=== PATIENT | female | born 1930 | race Two or more races ===

== ENCOUNTER 2018-10-21 20:50 | Inpatient (IN) | payer MEDICARE, BC ==
[2018-10-21] MEDS ORDERED: Sodium Chloride 0.9% 1,000 ML IV ONE (21:15)
--- NOTE | 2018-10-21 21:23 | ED Physician Chart ---
ED Chief Complaint/HPI - Patient Information Date Seen:: 10/21/18 Time Seen:: 21:20 Chief Complaint:: abdominal pain, vomiting and diarrhea History of Present Illness:: Patient developed epigastric pain, vomiting and diarrhea 2-3 hours ago. She has vomited about 12 times and had 6-7 times watery diarrhea. Allergies:: Allergies Allergy/AdvReac Type Severity Reaction Status Date / Time No Known Allergies Allergy Verified 10/21/18 21:01 Vitals:: Vital Signs - 8 hr 10/21/18 20:50 Temp 96.7 F HR 130 RR 20 BP 157/83 O2 Sat % 100 Historian:: Patient, Family Member Review:: Nurse's Note Reviewed ED Review of Systems - Review of Systems General/Constitutional: No fever, No chills Skin: No skin lesions Head: No headache Eyes: No loss of vision ENT: No earache Neck: No neck pain, No swelling Cardio Vascular: No chest pain, No palpitations Pulmonary: No SOB, No cough, No sputum GI: Nausea, Vomiting, Diarrhea, Pain G/U: No dysuria Musculoskeletal: No bone or joint pain Endocrine: No polyuria, No polydipsia Psychiatric: No prior psych history Hematopoietic: No bruising Allergic/Immuno: No urticaria Neurological: No syncope, No focal symptoms ED Past Medical History - Past Medical History Past Medical History: HTN Family History: None Social History: Non Smoker, No Alcohol Surgical History: None Psychiatricy History: None Medication: Reviewed Family Medical History - Family Member Mother History Unknown: Yes ED Physical Exam - Physical Examination General/Constitutional: Awake, Well-developed, well-nourished, Alert, No distress Head: Atraumatic Eyes: Lids, conjuctiva normal, PERRL Other Eyes comments:: arcus senilis Skin: Nl inspection, No rash, No skin lesions, No ecchymosis ENMT: External ears, nose nl, TM canals nl, Nasal exam nl Other ENMT comments:: Edentulous Neck: No nuchal rigidity Respiratory: Nl effort/Exclusion, Clear to Auscultation Cardio Vascular: RRR, No murmur, gallop, rubs GI: No organomegaly, No hernia, Normal BS's Other GI comments:: Epigastric tenderness; milder right upper quadrant tenderness Extremities: Normal digits & nails Neuro/Psych: No focal deficits ED Labs/Radiology/EKG Results - Lab Results Results: Laboratory Results WBC 12.2 Th/cmm (4.8-10.8) H 10/21/18 21:30 RBC 4.29 Mil/cmm (3.80-5.20) 10/21/18 21:30 Hgb 12.2 gm/dL (12-16) 10/21/18 21:30 Hct 36.7 % (41.0-60) L 10/21/18 21:30 MCV 85.5 fl (81-100) 10/21/18 21:30 MCH 28.5 pg (27.0-31.0) 10/21/18 21:30 MCHC Differential 33.3 pg (28.0-36.0) 10/21/18 21:30 RDW 13.6 % (11.5-20.0) 10/21/18 21:30 Plt Count 255 Th/cmm (150-400) 10/21/18 21:30 MPV 8.1 fl 10/21/18 21:30 Neutrophils % 72.0 % (40.0-80.0) 10/21/18 21:30 Lymphocytes % 19.4 % (20.0-50.0) L 10/21/18 21:30 Monocytes % 3.8 % (2.0-10.0) 10/21/18 21:30 Eosinophils % 0.8 % (0.0-5.0) 10/21/18 21:30 Basophils % 4.0 % (0.0-2.0) H 10/21/18 21:30 Sodium 137 mEq/L (136-145) 10/21/18 21:30 Potassium 4.4 mEq/L (3.5-5.1) 10/21/18 21:30 Chloride 109 mEq/L (98-107) H 10/21/18 21:30 Carbon Dioxide 18.7 mEq/L (21.0-31.0) L 10/21/18 21:30 Anion Gap 13.7 (7.0-16.0) 10/21/18 21:30 BUN 33 mg/dL (7-25) H 10/21/18 21:30 Creatinine 1.5 mg/dL (0.6-1.2) H 10/21/18 21:30 Est GFR ( Amer) TNP 10/21/18 21:30 Est GFR (Non-Af Amer) TNP 10/21/18 21:30 BUN/Creatinine Ratio 22.0 10/21/18 21:30 Glucose 210 mg/dL (70-105) H 10/21/18 21:30 Calcium 10.0 mg/dL (8.6-10.3) 10/21/18 21:30 Magnesium 1.7 mg/dL (1.9-2.7) L 10/21/18 21:30 Lipase 62 U/L (11-82) 10/21/18 21:30 ED Assessment - Assessment General Assessment: Patient appears to have viral gastroenteritis with vomiting and diarrhea but because of her age she should be admitted to the hospital. Patient has a leukocytosis 12.2 K and a magnesium of 1.7 . She will receive 2 g of magnesium IV piggyback. ED Septic Shock - . Is Septic Shock (SBP<90, OR Lactate>4 mmol\L) present?: No - <6hrs of presentation: Vital Signs: Vital Signs - 8 hr 10/21/18 20:50 Temp 96.7 F HR 130 RR 20 BP 157/83 O2 Sat % 100 ED Reassessment (Disposition) - Reassessment Reassessment Condition:: Unchanged - Diagnosis Diagnosis:: Viral gastroenteritis; hypomagnesemia; leukocytosis - Aftercare/Follow up Instructions Aftercare/Follow-Up Instructions:: Refer to Discharge Instructions - Patient Disposition Discharge/Transfer:: Home Spoke to:: Vivian Carrasco Admitting Medical Physician:: Vivian Carrasco Condition at Disposition:: Stable, Unchanged
[2018-10-21 21:33] LABS: % EOSINOPHILS 0.8 % (0.0-5.0); % LYMPHOCYTES 19.4 % (20.0-50.0); % MONOCYTES 3.8 % (2.0-10.0); BASOPHILE ABSOLUTE 0.5 Th/cumm (0-0.2); EOSINOPHILE ABSOLUTE 0.1 Th/cmm (0.1-0.4); HEMATOCRIT 36.7 % (41.0-60); HEMOGLOBIN 12.2 gm/dL (12-16); LYMPHOCYTE ABSOLUTE 2.4 Th/cmm (1.5-3.0); MEAN CELL VOLUME 85.5 fl (81-100); MEAN CORPUSCULAR HEMOGLOBIN 28.5 pg (27.0-31.0); MEAN CORPUSCULAR HGB CONC 33.3 pg (28.0-36.0); MONOCYTE ABSOLUTE 0.5 Th/cmm (0.3-1.0); NEUTROPHILE ABSOLUTE 8.7 Th/cmm (1.8-8.0); PLATELET COUNT 255 Th/cmm (150-400); RED BLOOD COUNT 4.29 Mil/cmm (3.80-5.20); RED CELL DISTRIBUTION WIDTH 13.6 % (11.5-20.0); WHITE BLOOD COUNT 12.2 Th/cmm (4.8-10.8)
[2018-10-21 21:50] LABS: ANION GAP 13.7 (7.0-16.0); BUN - UREA NITROGEN 33 mg/dL (7-25); CARBON DIOXIDE 18.7 mEq/L (21.0-31.0); CHLORIDE 109 mEq/L (98-107); CREATININE - SERUM 1.5 mg/dL (0.6-1.2); GLUCOSE 210 mg/dL (70-105); LIPASE 62 U/L (11-82); MAGNESIUM 1.7 mg/dL (1.9-2.7); POTASSIUM SERUM 4.4 mEq/L (3.5-5.1); SODIUM SERUM 137 mEq/L (136-145)
[2018-10-22 00:56] VITALS: BP 122/69
[2018-10-22] MEDS: D5-0.45NS w/20 mEq KCL 1,000 ML IV SCH ×2 (01:45→14:13)
[2018-10-22 05:38] LABS: ALB/GLOB RATIO 1.4 (1.0-1.8); ALBUMIN 3.4 gm/dL (3.7-5.3); ALKALINE PHOSPHATASE 32 U/L (34-104); ANION GAP 11.4 (7.0-16.0); BILIRUBIN,TOTAL 0.4 mg/dL (0.3-1.0); BUN - UREA NITROGEN 33 mg/dL (7-25); CALCIUM SERUM 8.6 mg/dL (8.6-10.3); CARBON DIOXIDE 20.6 mEq/L (21.0-31.0); CHLORIDE 108 mEq/L (98-107); CREATININE - SERUM 1.3 mg/dL (0.6-1.2); GLUCOSE 212 mg/dL (70-105); SGPT/ALT 6 U/L (7-52); SODIUM SERUM 135 mEq/L (136-145); TOTAL PROTEIN,SERUM 5.8 gm/dL (6.0-8.3)
[2018-10-22 07:09] LABS: SGOT 8 U/L (13-39)
[2018-10-22] MEDS ORDERED: GLUCAGON HCl 1 MG KIT IM PRN (15:56)
[2018-10-22] MEDS ORDERED: Dextrose 50% 50 mL Abboject IVP PRN (15:56)
--- NOTE | 2018-10-22 16:17 | History & Physical ---
ADMIT DATE: 10/21/2018 CHIEF COMPLAINT: Nausea, vomiting, diarrhea, abdominal pain for 1 day duration. HISTORY OF PRESENT ILLNESS: The patient is an 87-year-old female with long history of hypertension, hyperlipidemia, diabetes mellitus, presented to the Emergency Room with intractable nausea, vomiting, diarrhea, evaluated by the ER physician. Initial workup sent for acute gastroenteritis, admitted to the hospital, started on IV fluid, full liquid diet, IV Protonix. No fever, no chills, no dysuria or hematuria. PAST MEDICAL HISTORY: Hypertension, hyperlipidemia, diabetes mellitus, degenerative joint disease. PAST SURGICAL HISTORY: Cholecystectomy, tonsillectomy, appendectomy. ALLERGIES: None. MEDICATIONS: Follow admission reconciliation. SOCIAL HISTORY: No smoker, no alcohol, no drugs. FAMILY HISTORY: Noncontributory. REVIEW OF SYSTEMS: RENAL SYSTEM: No history of chronic renal disorder. CARDIOVASCULAR SYSTEM: No coronary artery disease. ENDOCRINE SYSTEM: She has diabetes mellitus. GASTROINTESTINAL SYSTEM: She has intractable nausea and vomiting, diarrhea. NEUROLOGICAL SYSTEM: No seizure disorder. MUSCULOSKELETAL SYSTEM: No muscular dystrophy. HEMATOLOGIC SYSTEM: No bleeding tendencies. RESPIRATORY SYSTEM: No asthma. GENITOURINARY SYSTEM: No dysuria or hematuria. PHYSICAL EXAMINATION: GENERAL: She is awake, alert, oriented, not in pain or distress. VITAL SIGNS: Temperature 98.0, heart rate 93, blood pressure 104/50. HEENT: Normocephalic. Pupils reactive to light and accommodation. Sclerae clear. NECK: Supple. Negative for lymphadenopathy, JVD, or bruit. CHEST: Entry of air bilaterally normal. No rhonchi or wheezing. HEART: S1, S2 normal. No gallop rhythm. ABDOMEN: Soft, bowel sounds positive. EXTREMITIES: No edema. NEUROLOGIC: She is awake, alert, oriented. No focal motor or sensory deficits. Cranial nerves II through XII is intact. LABORATORY DATA: White blood cell 12.2, hemoglobin 12.2, hematocrit 36.7, platelet 255. Sodium 137, potassium 4.4, BUN 33, creatinine 0.4. ASSESSMENT: 1. Acute gastroenteritis. 2. Diabetes mellitus. 3. Hypertension. 4. Dehydration. 5. Acute kidney injury. PLAN: The patient admitted to the hospital under Dr. Carrasco's service, started on IV fluid, IV antibiotic. CBC, CMP for tomorrow. Advance the diet as tolerated. Case discussed with the family at bedside. [facility]# [id number]
[2018-10-22] MEDS: INSULIN LISPRO SLIDING SCALE 100 UNITS/ML UNIT SUBQ SCH ×2 (16:44→20:41)
[2018-10-22] MEDS: Ferrous Sulfate 325 MG TAB PO SCH (20:45)
[2018-10-23] MEDS: D5-0.45NS w/20 mEq KCL 1,000 ML IV SCH ×2 (06:05→16:01)
[2018-10-23 06:06] LABS: A1C 7.7 % (4.8-5.6)
[2018-10-23 06:18] LABS: % BASOPHILS 0.2 % (0.0-2.0); % EOSINOPHILS 1.9 % (0.0-5.0); % LYMPHOCYTES 35.4 % (20.0-50.0); % MONOCYTES 6.7 % (2.0-10.0); % NEUTROPHILS 55.8 % (40.0-80.0); EOSINOPHILE ABSOLUTE 0.1 Th/cmm (0.1-0.4); HEMATOCRIT 29.4 % (41.0-60); HEMOGLOBIN 9.8 gm/dL (12-16); LYMPHOCYTE ABSOLUTE 2.1 Th/cmm (1.5-3.0); MEAN CELL VOLUME 86.8 fl (81-100); MEAN CORPUSCULAR HEMOGLOBIN 28.9 pg (27.0-31.0); MEAN CORPUSCULAR HGB CONC 33.3 pg (28.0-36.0); MONOCYTE ABSOLUTE 0.4 Th/cmm (0.3-1.0); NEUTROPHILE ABSOLUTE 3.4 Th/cmm (1.8-8.0); PLATELET COUNT 170 Th/cmm (150-400); RED BLOOD COUNT 3.39 Mil/cmm (3.80-5.20); RED CELL DISTRIBUTION WIDTH 13.6 % (11.5-20.0)
[2018-10-23] MEDS: INSULIN LISPRO SLIDING SCALE 100 UNITS/ML UNIT SUBQ SCH ×3 (06:54→16:03)
[2018-10-23 07:07] LABS: ALB/GLOB RATIO 1.3 (1.0-1.8); ALBUMIN 3.2 gm/dL (3.7-5.3); ALKALINE PHOSPHATASE 27 U/L (34-104); ANION GAP 10.8 (7.0-16.0); BILIRUBIN,TOTAL 0.3 mg/dL (0.3-1.0); BUN - UREA NITROGEN 18 mg/dL (7-25); CALCIUM SERUM 8.6 mg/dL (8.6-10.3); CARBON DIOXIDE 20.7 mEq/L (21.0-31.0); CHLORIDE 111 mEq/L (98-107); CREATININE - SERUM 1.2 mg/dL (0.6-1.2); GLUCOSE 153 mg/dL (70-105); POTASSIUM SERUM 4.5 mEq/L (3.5-5.1); SGOT 9 U/L (13-39); SGPT/ALT 5 U/L (7-52); SODIUM SERUM 138 mEq/L (136-145); TOTAL PROTEIN,SERUM 5.6 gm/dL (6.0-8.3)
[2018-10-23] MEDS: Ferrous Sulfate 325 MG TAB PO SCH ×2 (08:57→13:07)
[2018-10-23] MEDS ORDERED: Fenofibrate, Micronized 134 mg Cap PO SCH (09:00)
--- NOTE | 2018-10-23 20:28 | General Progress Note ---
Subjective - Review of Systems Service Date: 10/23/18 Subjective: awake and alert denies nausea or diarrhea, denies abdo pain feels better and eager to go home daughter at bedside Objective - Results Result Diagrams: 10/23/18 05:40 10/23/18 05:00 Recent Labs: Laboratory Last Values WBC 6.0 Th/cmm (4.8-10.8) 10/23/18 05:40 RBC 3.39 Mil/cmm (3.80-5.20) L 10/23/18 05:40 Hgb 9.8 gm/dL (12-16) L 10/23/18 05:40 Hct 29.4 % (41.0-60) L 10/23/18 05:40 MCV 86.8 fl (81-100) 10/23/18 05:40 MCH 28.9 pg (27.0-31.0) 10/23/18 05:40 MCHC Differential 33.3 pg (28.0-36.0) 10/23/18 05:40 RDW 13.6 % (11.5-20.0) 10/23/18 05:40 Plt Count 170 Th/cmm (150-400) 10/23/18 05:40 MPV 8.0 fl 10/23/18 05:40 Neutrophils % 55.8 % (40.0-80.0) 10/23/18 05:40 Lymphocytes % 35.4 % (20.0-50.0) 10/23/18 05:40 Monocytes % 6.7 % (2.0-10.0) 10/23/18 05:40 Eosinophils % 1.9 % (0.0-5.0) 10/23/18 05:40 Basophils % 0.2 % (0.0-2.0) 10/23/18 05:40 Sodium 138 mEq/L (136-145) 10/23/18 05:00 Potassium 4.5 mEq/L (3.5-5.1) 10/23/18 05:00 Chloride 111 mEq/L (98-107) H 10/23/18 05:00 Carbon Dioxide 20.7 mEq/L (21.0-31.0) L 10/23/18 05:00 Anion Gap 10.8 (7.0-16.0) 10/23/18 05:00 BUN 18 mg/dL (7-25) 10/23/18 05:00 Creatinine 1.2 mg/dL (0.6-1.2) 10/23/18 05:00 Est GFR ( Amer) TNP 10/23/18 05:00 Est GFR (Non-Af Amer) TNP 10/23/18 05:00 BUN/Creatinine Ratio 15.0 10/23/18 05:00 Glucose 153 mg/dL (70-105) H 10/23/18 05:00 POC Glucose 189 MG/DL (70 - 105) H 10/23/18 15:58 Calcium 8.6 mg/dL (8.6-10.3) 10/23/18 05:00 Magnesium 1.7 mg/dL (1.9-2.7) L 10/21/18 21:30 Total Bilirubin 0.3 mg/dL (0.3-1.0) 10/23/18 05:00 AST 9 U/L (13-39) L 10/23/18 05:00 ALT 5 U/L (7-52) L 10/23/18 05:00 Alkaline Phosphatase 27 U/L (34-104) L 10/23/18 05:00 Total Protein 5.6 gm/dL (6.0-8.3) L 10/23/18 05:00 Albumin 3.2 gm/dL (3.7-5.3) L 10/23/18 05:00 Globulin 2.4 gm/dL 10/23/18 05:00 Albumin/Globulin Ratio 1.3 (1.0-1.8) 10/23/18 05:00 Lipase 62 U/L (11-82) 10/21/18 21:30 - Physical Exam Vitals and I&O: Vital Signs Temp 98.0 F 10/23/18 16:00 Pulse 93 10/23/18 16:00 Resp 18 10/23/18 16:00 BP 145/58 10/23/18 16:00 Pulse Ox 100 10/23/18 16:00 Intake & Output 10/23/18 10/23/18 10/24/18 06:59 18:59 06:59 Intake Total 1200 200 Output Total 0 Balance 1200 200 Weight (lbs) 69.127 kg 69.127 kg Intake: Intake, IV Amount 1000 D5-0.45NS w/20 mEq KCL 1, 1000 000 ml @ 75 mls/hr IV . [id number] [facility] Rx#:[id number] Oral 200 200 Output: Stool 0 Other: # Voids 3 3 # Bowel Movements 0 1 Weight Source Bedscale Bedscale Active Medications: Current Medications Dextrose (D50w) 50 ml IVP PRN PRN PRN Reason: Blood Glucose less than 70 Stop: 12/21/18 15:55 Dextrose (Glutose 40%) 18.75 gm PO PRN PRN PRN Reason: Blood Glucose less than 70 Stop: 12/21/18 15:55 Fenofibrate (Tricor) 134 mg PO DAILY [facility] Stop: 12/22/18 08:59 Last Admin: 10/23/18 08:57 Dose: 134 mg Ferrous Sulfate (Iron) 325 mg PO TID [facility] Stop: 12/21/18 20:59 Last Admin: 10/23/18 13:07 Dose: 325 mg Glimepiride (Amaryl) 4 mg PO QDAC [facility] Stop: 12/22/18 07:29 Last Admin: 10/23/18 06:54 Dose: 4 mg Glucagon (Glucagen) 1 mg IM PRN PRN PRN Reason: Blood Glucose less than 70 Stop: 12/21/18 15:55 Potassium Chloride/Dextrose/Sod Cl (D5-0.45ns W/20 Meq Kcl) 1,000 mls @ 75 mls/ hr IV .[id number] [facility] Stop: 12/21/18 00:59 Last Admin: 10/23/18 16:01 Dose: 75 mls/hr Insulin Human Lispro (Humalog Insulin Sliding Scale) 0 units SUBQ ACHS [facility]; Protocol Stop: 12/21/18 16:29 Last Admin: 10/23/18 16:03 Dose: 3 units Lisinopril (Zestril) 10 mg PO DAILY [facility] Stop: 12/22/18 08:59 Last Admin: 10/23/18 08:57 Dose: 10 mg Ondansetron HCl (Zofran) 4 mg IV Q4HR PRN PRN Reason: Nausea / Vomiting Stop: 12/21/18 00:59 Pantoprazole Sodium (Protonix) 40 mg IVP DAILY [facility] Stop: 12/21/18 00:59 Last Admin: 10/23/18 08:57 Dose: 40 mg General: Alert, No acute distress HEENT: Atraumatic, PERRLA, EOMI Neck: Supple, JVD Cardiovascular: Regular rate, Normal S1, Normal S2 Lungs: Clear to auscultation Abdomen: Bowel sounds, Soft Assessment/Plan - Assessment Assessment: viral gastroenteritis dehydration DM chronic anemia - Plan Plan: d/c home resume previous meds f/u with PCP in one week Nutritional Asmnt/Malnutr-PDOC - Dietary Evaluation Malnutrition Findings (Please click <Entered> for more info): Nutritional Asmnt/Malnutrition Start: 10/22/18 16: 08 Text: Status: Active Freq: Protocol: Document 10/22/18 16:08 CASSIDY (Rec: 10/22/18 16:15 [email or web address]) Nutritional Asmnt/Malnutrition Patient General Information Nutritional Screening High Risk Diagnosis GASTROENTERITIS Pertinent Medical Hx/Surgical Hx HTN, DM Subjective Information PT IS HIGH RISK, CONSULT: ADMITTING GLUCOSE 210 PT IS A 87 YEAR OLD FEMALE ADMITTED FROM HOME ON 10/21 C/O EPIGASTRIC PAIN, V/D. SPOKE WITH THOMAS GARCIAS, PT HAD A REGULAR BM THIS MORNING; WAITING ON DR TO SEE PT FOR CARE PLAN. HT: 5 FT WT: 149 LB (67.73 KG) BMI: 29.13 (OVERWEIGHT) GI: SOFT, ROUND, NON-TENDER, V /D BM: 10/22 X1 I/O: 1435/NOT NOTED SKIN: WNL, PINK, WARM, DRY, ELASTIC, INTACT KIRBY: 21 DIET ORDER: CLEAR LIQUID ESTIMATED ENERGY NEEDS: ( GERIATRIC) 4504-4637 KCALS (25-30 KCALS/ KG) 68-81 G PRO (1.0-1.2 G/KG) 2583-3656 ML (25-30 ML/KG) PT IS CURRENTLY ON A CLEAR LIQUID DIET D/T REPEATED N/D. Current Diet Order/ Nutrition Support CLEAR LIQUID Pertinent Medications ZOFRAN(PRN), PROTONIX, D5-0. 45NS W/20 MEQ KCL 1000ML@75ML/ HR IV [id number] DAVID Pertinent Labs 10/22: GLUC 212, NA 135, BUN/CR 33/1.3, AST 8, ALT 6, ALK PHOS 32, T PRO 5.8, ALB 3.4 10/21: GLUC 210 Nutritional Hx/Data Height 12.7 cm Height (Calculated Centimeters) 12.7 Current Weight (lbs) 67.585 kg Weight (Calculated Kilograms) 67.6 Weight (Calculated Grams) 51787.3 [place] Body Weight 100 % [place] Body Weight 149 Body Mass Index (BMI) 4189.9 Weight Status Overweight GI Symptoms GI Symptoms Vomitting Diarrhea Last BM 7 X1 Skin Integrity/Comment: WNL, PINK, WARM, DRY, ELASTIC, INTACT Current %PO Fair (50-74%) Estimated Nutritional Goals BEE in Kcals: Using Current wt Calories/Kcals/Kg 25-30 Kcals Calculated 5977-6327 Protein: Using Current wt Protein g/k.0-1.2 Protein Calculated 68-81 Fluid: ml 2649-6802 ML (25-30 ML/KG) Nutritional Problem 1. Problem Problem INADEQUATE ENERGY AND PROTEIN INTAKE Etiology R/T REPEATED N/V Signs/Symptoms: AEB CLEAR LIQUID DIET ORDER Malnutrition Related to Morbid Obesity Malnutrition related to morbid obesity No Intervention/Recommendation Comments CONTINUE WITH CLEAR LIQUID DIET ORDERD AND ADVANCE ONCE MEDICALLY APPROPRIATE. Expected Outcomes/Goals Expected Outcomes/Goals 1. PO INTAKE TO MEET 75% OF NUTRITIONAL NEEDS. 2. MONITOR PO INTAKE, WT, NUTRITION RELATED LABS AND SKIN INTEGRITY. 3. F/U MODERATE RISK IN 3-5 DAYS, 10/25-10/27
== END 2018-10-23 20:59 | disposition home or self-care (01) | DRG 391 ==
LOC: ER 20:50 → MSI 22:52
PROVIDERS: ADMIT Family Medicine; ATTEND Family Medicine
DX: A08.4 Viral intestinal infection, unspecified (principal); N17.0 Acute kidney failure with tubular necrosis; D72.829 Elevated white blood cell count, unspecified; I10 Essential (primary) hypertension; E83.42 Hypomagnesemia; E78.5 Hyperlipidemia, unspecified; E86.0 Dehydration; E11.9 Type 2 diabetes mellitus without complications; M19.90 Unspecified osteoarthritis, unspecified site; Z90.49 Acquired absence of other specified parts of digestive tract
CPT/HCPCS: 36415-UA; 80048-TC; 80053-TC; 82948-90; 83036-90; 83690-TC; 83735-TC; 85025-TC; 90784; 96374; C9113; J2405; J7030; Z7610